=== PATIENT | female | born 1975 | race Two or more races ===

== ENCOUNTER 2024-07-25 05:34 | Day surgery (SDC) | payer OTHER ==
[2024-07-22 13:58] VITALS: BP 124/81
[2024-07-22 14:02] LABS: HEMATOCRIT 31.6 % (36.0-45.00); HEMOGLOBIN 10.3 g/dL (12.0-15.00); MEAN CELL VOLUME 84.3 fL (80.00-100.00); MEAN CORPUSCULAR HEMOGLOBIN 27.5 pg (27.00-32.0); MEAN CORPUSCULAR HGB CONC 32.6 g/dl (32.0-36.0); PLATELET COUNT 303 K/uL (150-450); RED BLOOD COUNT 3.75 M/uL (4.00-6.00)
[2024-07-22 15:38] LABS: INR 1.19; PARTIAL THROMBOPLASTIN TIME 23.9 SECONDS (22.0-34.0); PROTHROMBIN TIME 12.8 SECONDS (9.0-11.5)
[~2024-07-25] VITALS: Ht 165.1 cm; Wt 72.6 kg
[2024-07-25] MEDS ORDERED: ONDANSETRON HCL 2 MG/ML VIAL IV STA (12:30)
[2024-07-25] MEDS ORDERED: POVIDONE-IODINE 118 ML BOTT TOP ONE (12:30)
[2024-07-25] MEDS ORDERED: KETOROLAC TROMETHAMINE 30 MG VIAL IV ONE (12:45)
== END 2024-07-25 17:20 | disposition home or self-care (01) ==
LOC: CIR.AMB 05:34
PROVIDERS: ATTEND Obstetrics & Gynecology
DX: N84.0 Polyp of corpus uteri (principal); N93.8 Other specified abnormal uterine and vaginal bleeding

== ENCOUNTER 2024-08-31 07:00 | Inpatient (IN) | payer OTHER ==
[~2024-08-31] VITALS: Ht 198.1 cm; Wt 45.4 kg
[2024-08-31 07:43] VITALS: BP 112/74
[2024-08-31 07:45] VITALS: BP 100/65
[2024-08-31 08:10] LABS: HEMATOCRIT 31.6 % (36.0-45.00); HEMOGLOBIN 10.5 g/dL (12.0-15.00); MEAN CELL VOLUME 81.9 fL (80.00-100.00); MEAN CORPUSCULAR HEMOGLOBIN 27.3 pg (27.00-32.0); MEAN CORPUSCULAR HGB CONC 33.4 g/dl (32.0-36.0); PLATELET COUNT 263 K/uL (150-450); RED BLOOD COUNT 3.86 M/uL (4.00-6.00); RED CELL DISTRIBUTION WIDTH 16.8 % (11.5-14.5)
[2024-08-31 08:12] LABS: PH,URINE 5.5 (5.0-8.0); URINE APPEARANCE Clear; URINE BILIRRUBIN Negative (NEGATIVE); URINE BLOOD Negative; URINE COLOR Yellow; URINE GLUCOSE Negative (NEGATIVE); URINE KETONE Negative (NEGATIVE); URINE LEUKOCYTE Negative; URINE NITRATE Negative; URINE PROTEIN Negative (NEGATIVE); URINE UROBILINOGEN 0.2 E.U./dl
[2024-08-31 08:29] LABS: INR 1.21
[2024-08-31 09:22] LABS: URINE BACTERIA 49.1 uL (0.0-1933); URINE EPITHELIAL CELLS 7.2 uL (0.0-38.8); URINE RBC 9.6 uL (0.0-20.8); URINE WBC 2.7 uL (0.0-23.2)
[2024-08-31 09:28] LABS: ALBUMIN 3.6 gm/dL (3.4-5.0); BILIRUBIN TOTAL 0.56 mg/dL (0.3-1.2); CALCIUM 8.8 mg/dL (8.5-10.1); CREATININE SERUM 0.71 mg/dL (0.55-1.02); GFR 88.24; POTASSIUM 4.39 mEq/L (3.5-5.1); TOTAL PROTEIN 7.6 gm/dL (6.4-8.2)
[2024-09-05] MEDS ORDERED: CEFAZOLIN SODIUM 1,000 MG VIAL IV ONE (09:45)
[2024-09-05] MEDS ORDERED: POVIDONE-IODINE 118 ML BOTT TOP ONE (09:45)
[2024-09-05] MEDS ORDERED: MORPHINE SULFATE 4 MG/ML VIAL IV ONE ×2 (10:55→11:50)
[2024-09-05] MEDS ORDERED: MEPERIDINE HCL/PF 50 MG/ML VIAL IV SCH (12:00)
[2024-09-05] MEDS ORDERED: PROMETHAZINE HCL 25 MG/ML AMPUL IV SCH (12:00)
[2024-09-05 12:44] VITALS: BP 100/65
[2024-09-05 15:43] VITALS: BP 103/70
[2024-09-05 18:30] LABS: HEMATOCRIT 25.3 % (36.0-45.00); MEAN CELL VOLUME 84.4 fL (80.00-100.00); MEAN CORPUSCULAR HGB CONC 32.1 g/dl (32.0-36.0); PLATELET COUNT 231 K/uL (150-450); RED CELL DISTRIBUTION WIDTH 16.6 % (11.5-14.5)
[2024-09-05 18:32] LABS: HEMOGLOBIN 8.1 g/dL (12.0-15.00)
[2024-09-06 00:44] VITALS: BP 128/80
[2024-09-06] MEDS ORDERED: IBUprofen 800 MG TABLET PO SCH (02:00)
[2024-09-06] MEDS ORDERED: GABAPENTIN 300 MG CAPSULE PO SCH (05:00)
[2024-09-06] MEDS ORDERED: SIMETHICONE 125 MG CAPSULE PO SCH (05:00)
[2024-09-06 05:32] LABS: MEAN CELL VOLUME 82.8 fL (80.00-100.00); MEAN CORPUSCULAR HGB CONC 33.7 g/dl (32.0-36.0); PLATELET COUNT 228 K/uL (150-450); RED BLOOD COUNT 2.35 M/uL (4.00-6.00); RED CELL DISTRIBUTION WIDTH 16.3 % (11.5-14.5)
[2024-09-06 05:46] LABS: HEMATOCRIT 19.4 % (36.0-45.00); HEMOGLOBIN 6.6 g/dL (12.0-15.00)
[2024-09-06 05:50] VITALS: BP 119/72
[2024-09-06] MEDS ORDERED: POVIDONE-IODINE 118 ML BOTT TOP ONE (07:00)
[2024-09-06 07:52] VITALS: BP 116/72
[2024-09-06] MEDS ORDERED: POLYETHYLENE GLYCOL 3350 17 GM BLIST.PACK PO SCH (09:00)
[2024-09-06 15:44] VITALS: BP 136/76
[2024-09-06 20:06] LABS: HEMATOCRIT 28.8 % (36.0-45.00); MEAN CELL VOLUME 83.7 fL (80.00-100.00); MEAN CORPUSCULAR HGB CONC 34.2 g/dl (32.0-36.0); PLATELET COUNT 227 K/uL (150-450); RED BLOOD COUNT 3.44 M/uL (4.00-6.00); RED CELL DISTRIBUTION WIDTH 15.5 % (11.5-14.5)
[2024-09-06 20:09] LABS: HEMOGLOBIN 9.8 g/dL (12.0-15.00); MEAN CORPUSCULAR HEMOGLOBIN 28.4 pg (27.00-32.0)
[2024-09-06 20:57] VITALS: BP 127/84
[2024-09-07 01:01] VITALS: BP 123/73
[2024-09-07 04:06] LABS: HEMATOCRIT 24.9 % (36.0-45.00); MEAN CELL VOLUME 82.9 fL (80.00-100.00); MEAN CORPUSCULAR HEMOGLOBIN 30.6 pg (27.00-32.0); MEAN CORPUSCULAR HGB CONC 36.9 g/dl (32.0-36.0); PLATELET COUNT 199 K/uL (150-450); RED CELL DISTRIBUTION WIDTH 15.6 % (11.5-14.5)
[2024-09-07 04:11] LABS: HEMOGLOBIN 9.2 g/dL (12.0-15.00)
[2024-09-07 15:48] VITALS: BP 134/79
[2024-09-07 21:37] VITALS: BP 119/77
[2024-09-08 00:45] VITALS: BP 134/80
[2024-09-08] MEDS ORDERED: SIMETHICONE125 M1 PO (06:36)
[2024-09-08] MEDS ORDERED: POLY119PG PO (06:36)
[2024-09-08] MEDS ORDERED: GABAPENTIN300 MG PO (06:36)
[2024-09-08] MEDS ORDERED: IBUPROFEN800 MG PO (06:36)
[2024-09-08] MEDS ORDERED: AMOX1TAB5 PO (06:37)
[2024-09-08 08:00] VITALS: BP 134/70
== END 2024-09-08 12:09 | disposition home or self-care (01) | DRG 743 ==
LOC: OB/GYN 09-05 05:30 → O/R 09-05 05:30 → OB/GYN 09-05 07:00
PROVIDERS: ADMIT Obstetrics & Gynecology; ATTEND Obstetrics & Gynecology
PROC: 0UT50ZZ Resection of Right Fallopian Tube, Open Approach (ICD-10-PCS; 2024-09-05)
PROC: 0UT90ZZ Resection of Uterus, Open Approach (ICD-10-PCS; principal; 2024-09-05 08:30)
PROC: 30233N1 Transfusion of Nonautologous Red Blood Cells into Peripheral Vein, Percutaneous Approach (ICD-10-PCS; 2024-09-06)
DX: D25.1 Intramural leiomyoma of uterus (principal); D25.2 Subserosal leiomyoma of uterus; D25.0 Submucous leiomyoma of uterus; R10.2 Pelvic and perineal pain; N80.03 Adenomyosis of the uterus; D64.9 Anemia, unspecified; N72 Inflammatory disease of cervix uteri; Z20.822 Contact with and (suspected) exposure to COVID-19

== ENCOUNTER 2024-09-22 11:42 | Inpatient (IN) | payer OTHER ==
[~2024-09-22] VITALS: Ht 152.4 cm; Wt 68.5 kg
[~2024-09-22 11:42] MED LIST: AMOX1TAB5 PO; GABAPENTIN300 MG PO; IBUPROFEN800 MG PO; POLY119PG PO; SIMETHICONE125 M1 PO
--- NOTE | 2024-09-22 13:41 | NUR ---
PACIENTE ALERTA Y ORIENTADA X 3. REFIERE DESDE LINDA SANGRADO VAGINAL, INDICA LE REALIZARON HISTERECTOMIA PARCIAL EL MBRE.
[2024-09-22] MEDS ORDERED: 0.9 % SODIUM CHLORIDE 1,000 ML IV STA (14:12)
[2024-09-22 14:28] LABS: HEMATOCRIT 34.3 % (36.0-45.00); HEMOGLOBIN 11.2 g/dL (12.0-15.00); MEAN CELL VOLUME 87.2 fL (80.00-100.00); MEAN CORPUSCULAR HEMOGLOBIN 28.5 pg (27.00-32.0); MEAN CORPUSCULAR HGB CONC 32.7 g/dl (32.0-36.0); PLATELET COUNT 409 K/uL (150-450); RED BLOOD COUNT 3.93 M/uL (4.00-6.00); RED CELL DISTRIBUTION WIDTH 16.8 % (11.5-14.5)
--- NOTE | 2024-09-22 14:33 | NUR ---
SE ORIENTA PTE SOBRE TX A SEGUIR, LA MISMA REFIERE ENTENDER. SE CONSTANCE MUESTRA DE LAB, SE CANALIZA Y SE COLOCA IV FLUIDS
[2024-09-22 14:55] LABS: PH,URINE 5.5 (5.0-8.0); URINE APPEARANCE Cloudy; URINE BILIRRUBIN Negative (NEGATIVE); URINE BLOOD Large; URINE COLOR Dark Yellow; URINE GLUCOSE Negative (NEGATIVE); URINE KETONE Trace (NEGATIVE); URINE LEUKOCYTE Small; URINE NITRATE Negative; URINE PROTEIN 30 (NEGATIVE)
[2024-09-22 14:58] LABS: URINE BACTERIA 286.4 uL (0.0-1933); URINE EPITHELIAL CELLS 41.1 uL (0.0-38.8); URINE RBC 20.3 uL (0.0-20.8); URINE WBC 58.4 uL (0.0-23.2)
[2024-09-22 15:05] LABS: CALCIUM 9.3 mg/dL (8.5-10.1); CREATININE SERUM 0.75 mg/dL (0.55-1.02); GFR 82.83; POTASSIUM 3.31 mEq/L (3.5-5.1)
[2024-09-22 15:54] LABS: URINE CAST 1.32 uL (0.0-1.40)
[2024-09-22 16:02] LABS: URINE CRYSTALS MODERATE /HPF; URINE MUCUS HEAVY
--- NOTE | 2024-09-23 07:18 | NUR ---
FEMINA ALERTA Y ORIENTADA X3 EN FRANCISCO POSICION MAS BAJA Y BARANDAS ELEVADAS POR SEGURIDAD. CANALIZACION PATENTE SERAFIN DE EDEMA Y ERITEMA CON IVF'S HEBER ORDEN MEDICA. PENDIENTE CONSULTA CON DR URBAN.
[2024-09-23] MEDS ORDERED: IBUprofen 800 MG TABLET PO PRN (07:45)
[2024-09-23 08:10] VITALS: BP 106/72
[2024-09-23] MEDS ORDERED: CLINDAMYCIN PHOSPHATE 150 MG/ML (900mg) ONE (08:24)
[2024-09-23] MEDS ORDERED: CLINDAMYCIN PHOSPHATE 900 MG in DEXTROSE 5 % IN WATER 100 ML IV SCH (09:00)
[2024-09-23] MEDS ORDERED: POLYETHYLENE GLYCOL 3350 17 GM BLIST.PACK PO SCH (09:00)
[2024-09-23 12:34] VITALS: BP 117/71
[2024-09-23 16:08] VITALS: BP 106/69
[2024-09-23] MEDS ORDERED: fentaNYL CITRATE 50 MCG/ML AMPUL IV PUSH ONE ×2 (20:15→22:45)
[2024-09-23] MEDS ORDERED: MIDAZOLAM HCL 2 MG/2 ML VIAL IV PUSH ONE (20:15)
[2024-09-24 01:06] VITALS: BP 99/64
[2024-09-24 08:00] VITALS: BP 92/57
[2024-09-24 13:27] VITALS: BP 93/62
[2024-09-24 16:00] VITALS: BP 103/69
[2024-09-25 00:12] VITALS: BP 90/56
[2024-09-25 08:10] VITALS: BP 94/60
[2024-09-25 16:00] VITALS: BP 100/55; O2SAT 100
[2024-09-25 23:48] VITALS: BP 101/66
[2024-09-27 08:00] VITALS: BP 101/66
[2024-09-27 08:14] LABS: HEMATOCRIT 29.9 % (36.0-45.00); HEMOGLOBIN 10.1 g/dL (12.0-15.00); MEAN CELL VOLUME 84.5 fL (80.00-100.00); MEAN CORPUSCULAR HEMOGLOBIN 28.5 pg (27.00-32.0); MEAN CORPUSCULAR HGB CONC 33.7 g/dl (32.0-36.0); PLATELET COUNT 463 K/uL (150-450); RED BLOOD COUNT 3.54 M/uL (4.00-6.00); RED CELL DISTRIBUTION WIDTH 16.6 % (11.5-14.5)
[2024-09-27] MEDS ORDERED: IBUPROFEN800 MG PO (14:52)
[2024-09-27] MEDS ORDERED: CLEOCIN HCL300 MG PO (14:53)
== END 2024-09-27 15:04 | disposition home or self-care (01) | DRG 921 ==
LOC: ER 11:44 → OB/GYN 09-23 07:54 → SEC-K 09-23 07:54 → OB/GYN 09-23 10:23
PROVIDERS: Emergency Medicine; ADMIT Obstetrics & Gynecology; ATTEND Obstetrics & Gynecology
PROC: 0W9J3ZZ Drainage of Pelvic Cavity, Percutaneous Approach (ICD-10-PCS; principal; 2024-09-23)
PROC: BU4CZZZ Ultrasonography of Uterus and Ovaries (ICD-10-PCS; 2024-09-27)
DX: N99.840 Postprocedural hematoma of a genitourinary system organ or structure following a genitourinary system procedure (principal); N93.9 Abnormal uterine and vaginal bleeding, unspecified; Z90.710 Acquired absence of both cervix and uterus; Z20.822 Contact with and (suspected) exposure to COVID-19